=== PATIENT | male | born 1970 | race African-American/Black ===

== ENCOUNTER 2017-01-14 15:43 | Inpatient (IN) | payer OTHER ==
--- NOTE | ~2017-01-14 | HP ---
Unit #: [id number] #: [id number] Patient: TIMOTHY NAZARIO [id number] [place] [address] [id number] MR#: [id number] NAME: TIMOTHY NAZARIO ROOM: P263 Age: 46 Sex: M Admission Date: 01/14/2017 : 1970 Attending Physician: Pavan Yusuf M.D. Admitting Physician: Pavan Yusuf M.D. Primary Care Physician: Primary Care Physician No HISTORY AND PHYSICAL HISTORY OF PRESENT ILLNESS Timothy is a 46 year old admitted to [facility] reporting depression and verbalizing wanting to hurt himself. He has had other admissions to this facility. PAST MEDICAL HISTORY 1. History of osteomyelitis. a. Amputation of the front of his left foot approximately 4 to 8 weeks ago. PAST SURGICAL HISTORY 1. As above. 2. 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 ALLERGIES Codeine. SOCIAL HISTORY He does not smoke. Drinks alcohol on occasion. Admits to a history of crack cocaine use. FAMILY HISTORY Medically noncontributory. REVIEW OF SYSTEMS CONSTITUTIONAL: No fever or chills. HEENT: Denies any sore throat, ear pain or runny nose. CARDIOVASCULAR: Denies chest pain, irregular heart rhythm or palpitations. CHEST: Denies shortness of breath or cough. No hemoptysis. GASTROINTESTINAL: Denies nausea, vomiting, diarrhea or chronic constipation. ENDOCRINE: Denies history of increased thirst or urination. No recent significant weight loss or gain. GENITOURINARY: Denies dysuria, frequency, or hematuria. SKIN: Denies any rashes. HEMATOLOGIC: Denies history of increased bleeding or bruising. MUSCULOSKELETAL: Denies any hot, swollen joints. No generalized muscle pain. NEUROLOGIC: Denies problems with vision or speech. No frequent, severe headaches. No numbness, tingling or weakness in any extremities. Denies loss of bladder or bowel control. CURRENT MEDICATIONS Unit #: [id number] #: [id number] Patient: TIMOTHY NAZARIO 1. Celexa 20 mg q.a.m. 2. Risperdal 0.5 mg b.i.d. 3. Multivitamin 1 daily. 4. Milk of Magnesia p.r.n. 5. Maalox p.r.n. 6. Tylenol p.r.n. 7. Neurontin 800 mg q.i.d. 8. Detox protocol. PHYSICAL EXAMINATION GENERAL: Alert, well-nourished, in no apparent distress. VITAL SIGNS: Blood pressure 118/72, heart rate 80, respirations 16, temperature 98.6. WEIGHT: 180. HEIGHT: 6 feet 2 inches. SKIN: Warm and dry without rash. The entire front part of his left foot is missing. The wound is clean. There is no discharge or slough noted. HEENT: Normocephalic. TMs not viewed. Oral and nasal passages clear. Conjunctivae clear. PERRLA. EOMs intact. NECK: Supple without lymphadenopathy or thyromegaly. HEART: Regular rate and rhythm without murmur. LUNGS: Clear. ABDOMEN: Soft, nontender. : Not done. EXTREMITIES: Moves all without focal deficit. Right lower extremity is absent above the knee. NEUROLOGICAL: Grossly within normal limits. Cranial Nerves: II: Visual barrios are intact. III, IV AND : Extraocular movements are intact. Pupils are equal, round and reactive to light. V: Facial sensation is grossly normal. VII: Facial movements and expression are normal. VIII: Auditory acuity grossly intact. IX, X: Uvula is midline. Phonation is normal. XI: Patient shrugs shoulders and turns head normally. XII: Tongue protrudes in the midline. Sensory and Motor Function: Sensory and motor sensation is grossly normal. Motor: moves all extremities well. Coordination: Patient gets around in a wheelchair. Gait not observed. Deep Tendon Reflexes: Intact. IMPRESSION 1. Psychiatric admission. 2. Recent amputation of the front part of his left foot, approximately 4 to 8 weeks ago. Wound is healing by secondary intention. RECOMMENDATIONS PSYCHIATRIC: Per psychiatrist. MEDICAL: 1. See no contraindication to participate in facility's activities. 2. Keep the wound clean with soap and water. Apply Medihoney and dressing secured with either Ken wrap or self-adherent bandage q. 4 days. MEDICAL PROGNOSIS Good. MEDICAL CONDITION Stable. Unit #: [id number] #: [id number] Patient: TIMOTHY NAZARIO Dictated by... Angel Luis AugustineC. for Daren Schwab/mayank TD: 01/15/2017 18:03 JOB #: [id number] HISTORY AND PHYSICAL Page 1 of 1 X Michelle Mata X HISTORY AND PHYSICAL
--- NOTE | ~2017-01-14 | PN ---
Unit #: [id number] #: [id number] Patient: TIMOTHY NAZARIO [id number] [facility] [address] [place] [address] [id number] I MR#: [id number] NAME: TIMOTHY NAZARIO. ROOM: P263 Age: 46 Sex: M Admission Date: 01/14/2017 : 1970 Attending Physician: Pavan Yusuf M.D. Admitting Physician: Pavan Yusuf M.D. Primary Care Physician: Primary Care Physician Nani HOBSON NOTES DATE 01/17/2017 DISCUSSION Mr. Nazario is a 46-year-old white male who was seen today and chart was reviewed and case was discussed with the staff. He has been anxious, withdrawn and rather seclusive to himself. Meanwhile, he has been cooperative with treatment recommendations and has been taking medications and tolerating them fairly well with no reported side effects. MENTAL STATUS EXAMINATION Middle-aged white male who was casually dressed with fair personal hygiene and appears to be in no acute distress or discomfort. He was awake and alert on interaction with intact orientation. His mood was anxious with congruent affect. He denies any suicidal or homicidal ideations. His insight and judgement remains slightly impaired. TREATMENT PLAN 1. Will continue on his current treatment protocol. Will monitor his response to the medications and make further adjustments as needed. 2. Will continue to follow up. Dictated by... Pavan Yusuf M.D. IAA/mayank TD: 01/17/2017 20:09 JOB #: [id number] Unit #: [id number] #: [id number] Patient: TIMOTHY NAZARIO [facility] PROGRESS NOTES Page 1 of 1 X Pavan Yusuf MD PROGRESS NOTE
--- NOTE | ~2017-01-14 | PN ---
Unit #: [id number] #: [id number] Patient: TIMOTHY ALMONTE [id number] [facility] [address] [place] [address] [id number] I MR#: [id number] NAME: TIMOTHY ALMONTE. ROOM: P263 Age: 46 Sex: M Admission Date: 01/14/2017 : 1970 Attending Physician: Pavan Yusuf M.D. Admitting Physician: Pavan Yusuf M.D. Primary Care Physician: Primary Care Physician Nani HOBSON NOTES DATE OF SERVICE 01/22/2017 DISCUSSION Mr. Almotne is a 46-year-old male who was seen today. Chart was reviewed and case was discussed with the staff. He has been anxious, withdrawn though has not shown any agitation or irritability and has been cooperative with the treatment recommendations and has been taking the medications and tolerating them fairly well with no reported side effects. MENTAL STATUS EXAMINATION Middle-aged male who is casually dressed with fair personal hygiene, appears to be in no acute distress or discomfort. The patient was awake and alert on interaction with intact orientation. His mood is anxious with congruent affect. His speech is slow and goal-directed. He denies any suicidal or homicidal ideations and also denies any auditory or visual hallucinations. His insight and judgment remain slightly impaired. TREATMENT PLAN 1. We will continue him on his current medications and treatment protocol. We will monitor his response to the medications and make further adjustments as needed. 2. We will continue to follow up. Dictated by... Daren Lemons/gunner TD: 01/22/2017 14:40 JOB #: [id number] Unit #: [id number] #: [id number] Patient: TIMOTHY ALMONTE [facility] PROGRESS NOTES Page 1 of 1 X Pavan Yusuf MD PROGRESS NOTE
--- NOTE | ~2017-01-14 | PN ---
Unit #: [id number] #: [id number] Patient: TIMOTHY ALMONTE [id number] [facility] [address] [place] [address] [id number] I MR#: [id number] NAME: TIMOTHY ALMONTE. ROOM: P263 Age: 46 Sex: M Admission Date: 01/14/2017 : 1970 Attending Physician: Pavan Yusuf M.D. Admitting Physician: Pavan Yusuf M.D. Primary Care Physician: Primary Care Physician Nani HOBSON NOTES DATE 01/21/2017 DISCUSSION Mr. Almonte is a 46-year-old, male with mood disorder who was seen today and chart was reviewed and case was discussed with the staff. He has been anxious, withdrawn, depressed and seclusive to himself though has been polite, pleasant and cooperative with treatment recommendations. He has been taking medication and tolerating them fairly well with no reported side effects. MENTAL STATUS EXAM Middle-aged male who was casually dressed with fair personal hygiene, appears to be in no acute distress or discomfort. He was awake and alert on interaction with intact orientation. His mood was anxious with congruent affect. He denies any suicidal or homicidal ideation. His insight and judgement remains slightly impaired. TREATMENT PLAN 1. We will continue him on his current medications and treatment protocol. We will monitor his response to the medication and make further adjustments as needed. 2. We will continue to follow up. Dictated by... Daren Lemons/miranda TD: 01/22/2017 02:58 JOB #: [id number] Unit #: [id number] #: [id number] Patient: TIMOTHY ALMONTE PEAWALI PROGRESS NOTES Page 1 of 1 X Pavan Yusuf MD PROGRESS NOTE
--- NOTE | ~2017-01-14 | PN ---
Unit #: [id number] #: [id number] Patient: TIMOTHY NAZARIO [id number] [facility] [address] [place] [address] [id number] I MR#: [id number] NAME: TIMOTHY NAZARIO ROOM: P263 Age: 46 Sex: M Admission Date: 01/14/2017 : 1970 Attending Physician: Pavan Yusuf M.D. Admitting Physician: Daren Lemons PROGRESS NOTES DATE OF SERVICE: 01/19/2017 SUBJECTIVE Mr. Nazario is a 46-year-old white male who was seen today and chart was reviewed, and case was discussed with the staff. He has been anxious withdrawn and rather seclusive to himself. Meanwhile, he has been taking the medications and tolerating them fairly well with no reported side effects. MENTAL STATUS EXAMINATION Middle-aged white male who was casually dressed with fair personal hygiene, appears to be in no acute distress or discomfort. He was awake and alert on interaction with intact orientation. His mood was anxious with a congruent affect. He denies any suicidal or homicidal ideations. His insight and judgment remain slightly impaired. TREATMENT PLAN 1. We will continue him on his current medications and treatment protocol. We will monitor his response to medications and make further adjustments as needed. 2. We will continue to follow up. Dictated by... Daren Lemons/jyotsnal TD: 01/19/2017 12:32 JOB #: [id number] [facility] PROGRESS NOTES Page 1 of 1 X Pavan Yusuf MD PROGRESS NOTE
--- NOTE | ~2017-01-14 | DS ---
Unit #: [id number] #: [id number] [facility] [id number] [facility] [address] [place] [address] [id number] I MR#: [id number] NAME: TIMOTHY NAZARIO ROOM: P263 Age: 46 Sex: M Admission Date: 01/14/2017 : 1970 Discharge Date: 01/23/2017 Attending Physician: Pavan Yusuf M.D. Primary Care Physician: Primary Care Physician No DISCHARGE SUMMARY IDENTIFYING DATA Mr. Nazario is a 46-year-old, , male, who is a resident of [place], [place], and was self-referred to the hospital. DISCHARGE DIAGNOSES Psychiatric: Major depressive disorder, recurrent, moderate, without psychotic features; impulse control disorder; alcohol dependence, moderate and acute withdrawals; cocaine dependence, moderate. Medical: Status post right glapc-ivs-trnk amputation. Stressors: Mild psychosocial stressors. HISTORY OF PRESENT ILLNESS Please see initial psychiatric evaluation for details. PAST PSYCHIATRIC HISTORY Please see initial psychiatric evaluation for details. PAST MEDICAL HISTORY Please see initial psychiatric evaluation for details. HOSPITAL COURSE The [facility] and was oriented to the hospital environment. Routine p.r.n. medications were initiated, and he was started on Risperdal and Celexa as an antidepressant and mood stabilizer and was closely monitored. He was taking the medications regularly and was tolerating them fairly well and was able to show a decent and therapeutic response with improvement in depression and anxiety and was willing to continue treatment on an outpatient basis and as such, it was decided that he will be discharged home and will continue treatment on an outpatient basis. DISCHARGE MEDICATIONS Celexa 20 mg a day and Risperdal 0.5 mg b.i.d. DISCHARGE CONDITION Stable. PROGNOSIS Fair. Dictated by... Pavan Yusuf M.D. Unit #: [id number] #: [id number] Patient: TIMOTHY NAZARIO IAA/modl TD: 01/23/2017 23:12 JOB #: [id number] DISCHARGE SUMMARY Page 1 of 1 X Pavan Yusuf MD DISCHARGE SUMMARY
--- NOTE | ~2017-01-14 | PN ---
Unit #: [id number] #: [id number] Patient: TIMOTHY ALMONTE [id number] [facility] [address] [place] [address] [id number] I MR#: [id number] NAME: TIMOTHY ALMONTE. ROOM: P263 Age: 46 Sex: M Admission Date: 01/14/2017 : 1970 Attending Physician: Pavan Yusuf M.D. Admitting Physician: Pavan Yusuf M.D. Primary Care Physician: Primary Care Physician Nani HOBSON NOTES DATE January 15, 2017 DISCUSSION Mr. Almonte is a 46-year-old white male, who was seen today and chart was reviewed and the case was discussed with the staff. He has been anxious, withdrawn, but has not shown any agitation or irritability and has been cooperative with the treatment recommendations, and he has been taking the medications and tolerating them fairly well with no reported side effects. MENTAL STATUS EXAMINATION Middle-aged white male, who was casually dressed with fair personal hygiene and appears to be in no acute distress or discomfort. He was awake and alert on interaction with intact orientation. His mood is anxious with a congruent affect. He denies any suicidal or homicidal ideations. His insight and judgment remain slightly impaired. TREATMENT PLAN 1. We will continue him on his current medications and treatment protocol, and will monitor his response to the medications, and make further adjustments as needed. 2. We will continue to followup. Dictated by... Daren Lemons/kristan TD: 01/15/2017 09:30 JOB #: [id number] Unit #: [id number] #: [id number] Patient: TIMOTHY ALMONTE [facility] PROGRESS NOTES Page 1 of 1 X Pavan Yusuf MD PROGRESS NOTE
--- NOTE | ~2017-01-14 | PN ---
Unit #: [id number] #: [id number] Patient: TIMOTHY ALMONTE [id number] [facility] [address] [place] [address] [id number] I MR#: [id number] NAME: TIMOTHY ALMONTE. ROOM: P263 Age: 46 Sex: M Admission Date: 01/14/2017 : 1970 Attending Physician: Pavan Yusuf M.D. Admitting Physician: Pavan Yusuf M.D. Primary Care Physician: Primary Care Physician Nani HOBSON NOTES DATE January 18, 2017 DISCUSSION Mr. Almonte is a 46-year-old white male, who was seen today and chart was reviewed and the case was discussed with the staff. He has been anxious, withdrawn, depressed, and rather seclusive to himself. He has been cooperative with the treatment recommendations and he has been taking the medications and tolerating them fairly well. MENTAL STATUS EXAMINATION Middle-aged white male, who was casually dressed with fair personal hygiene and appears to be in no acute distress or discomfort. He was awake and alert on interaction with intact orientation. His mood is anxious and depressed with a congruent affect. He denies any suicidal or homicidal ideations. His insight and judgment remain slightly impaired. TREATMENT PLAN We will continue him on his current medications and treatment protocol, and will monitor his response to the medications, and make further adjustments as needed. Dictated by... Daren Lemons/kristan TD: 01/20/2017 04:49 JOB #: [id number] Unit #: [id number] #: [id number] Patient: TIMOTHY ALMONTE [facility] PROGRESS NOTES Page 1 of 1 X Pavan Yusuf MD PROGRESS NOTE
--- NOTE | ~2017-01-14 | PA ---
Unit #: [id number] #: [id number] Patient: TIMOTHY NAZARIO [id number] [facility] [address] [place] [address] [id number] I MR#: [id number] NAME: TIMOTHY NAZARIO ROOM: P263 Age: 46 Sex: M Admission Date: 01/14/2017 : 1970 Date of Assessment: 01/14/2017 Attending Physician: Pavan Yusuf M.D. Admitting Physician: Pavan Yusuf M.D. Primary Care Physician: Primary Care Physician No PSYCHIATRIC ASSESSMENT DATE OF SERVICE 01/14/2017. IDENTIFYING DATA Mr. Nazario is a 46-year-old male, who is a resident of [place], [place] and was self-referred to the hospital. CHIEF COMPLAINT "I have been bad and unsanitary." HISTORY OF PRESENT ILLNESS Mr. Nazario is a 46-year-old male, who was self-referred to the hospital. Upon presentation, he reports that he has been in a lot of stress with his daily living due to staying a month in a rehab facility the past month and that he has been having suicidal and homicidal ideations with intent and plan to hurt the staff and the patients at [facility]. He is on disability and has been an amputee of his lower extremity and reports that he had osteomyelitis and MRSA and has a partially amputated foot and one leg is amputated below the knee and he has been wheelchair and has been in rehab and has been feeling hopeless and helpless and does report that rehab facility was bad and unsanitary and therefore, he has been having thoughts of going and killing staff at the rehab facility. He was seen to be danger to self and reports suicidal ideations and homicidal ideation and intent and plan to hurt the staff at rehab facility, stating "I know when I face stress, I divert to drugs and I know I should not be putting myself in that situation," and reports that he has multiple stressors and is currently homeless and therefore, recommendation for inpatient level of care for safety and stabilization was made and the patient was transferred to us. SUBSTANCE ABUSE HISTORY The patient reports history of alcohol, cannabis, cocaine, and acid abuse, and currently reports cocaine to be his drug of choice. He reports that he has been using 60 dollar worth of cocaine a day and has been using half a pint of liquor 3 to 4 days a week. PAST PSYCHIATRIC HISTORY The patient has a history of inpatient psychiatric hospitalization at [facility] and currently he is not active in treatment program, and is not seeing a psychiatrist and not taking any psychotropic medications. PAST MEDICAL HISTORY The patient's medical history significant for osteomyelitis, status post Unit #: [id number] #: [id number] Patient: TIMOTHY NAZARIO right botxx-ifd-nthq amputation. ALLERGIES Codeine. PERSONAL AND SOCIAL HISTORY A 46-year-old male, who reports that he is single, unemployed, and essentially homeless and has poor social support system. MENTAL STATUS EXAMINATION Middle-aged male, who was casually dressed with fair personal hygiene, appears to be in no acute distress or discomfort. He was awake and alert on interaction with intact orientation to time, place, and person. His mood was anxious and depressed with a congruent affect. His speech was slow and restricted in content. His thought processes were disorganized with some looseness of associations and suicidal ideations and homicidal ideations. His insight and judgment remain significantly impaired. DIAGNOSTIC IMPRESSION Psychiatric: Major depressive disorder, recurrent, moderate, without psychotic features; impulse control disorder; alcohol dependence, moderate and acute withdrawals; cocaine dependence, moderate. Medical: Status post right tfzbv-kvg-taon amputation. Stressors: Moderate psychosocial stressors. TREATMENT PLAN 1. The patient has presented with history of substance abuse and mood disorder and has been decompensating and will need inpatient hospitalization for safety and stabilization. We will start him back on his home medications. We will adjust the medications and monitor response. 2. Supportive therapy was provided to the patient. 3. Safe, structured, and nourishing environment will be reported. ESTIMATED LENGTH OF STAY 5 to 7 days. ABILITY TO HELP SELF Limited. WILLINGNESS TO HELP SELF The patient appears to be willing to help self. STRENGTHS 1. Communicative. 2. Cooperative. PROBLEMS 1. Chronic dysphoric symptoms. 2. Poor social support system. DISCHARGE CRITERIA This will be contingent upon the patient's ability to show resolution of his depression and anxiety and his ability to stay safe to himself, particularly after discharge from the hospital. Dictated by... Unit #: [id number] #: [id number] Patient: MANSIDaren Mohan/margareth TD: 01/15/2017 07:37 JOB #: [id number] PSYCHIATRIC ASSESSMENT Page 1 of 1 X Pavan Yusuf MD X PSYCHIATRIC ASSESSMENT
--- NOTE | ~2017-01-14 | PN ---
Unit #: [id number] #: [id number] Patient: TIMOTHY ALMONTE [id number] [facility] [address] [place] [address] [id number] I MR#: [id number] NAME: TIMOTHY ALMONTE. ROOM: P263 Age: 46 Sex: M Admission Date: 01/14/2017 : 1970 Attending Physician: Pavan Yusuf M.D. Admitting Physician: Pavan Yusuf M.D. Primary Care Physician: Primary Care Physician Nani HOBSON NOTES DATE January 20, 2017 DISCUSSION Mr. Almonte is a 46-year-old male, who was seen today and chart was reviewed and the case was discussed with the staff. He has been anxious, withdrawn, depressed, and rather seclusive to himself. Meanwhile, he has been cooperative with the treatment recommendations, and he has been taking the medications and tolerating them fairly well with no reported side effects. MENTAL STATUS EXAMINATION Middle-aged male, who was casually dressed with fair personal hygiene and appears to be in no acute distress or discomfort. He was awake and alert on interaction with intact orientation. His mood is anxious and depressed with a congruent affect. His speech is slow and goal-directed. He reports having any suicidal ideations but denies any homicidal ideations, and also denies any auditory or visual hallucinations. His insight and judgment remain slightly impaired. TREATMENT PLAN 1. We will continue him on his current medications and treatment protocol, and will monitor his response to the medications, and make further adjustments as needed. 2. We will continue to followup. Dictated by... Daren Lemons/kristan TD: 01/21/2017 06:39 JOB #: [id number] Unit #: [id number] #: [id number] Patient: TIMOTHY ALMONTE [facility] HOBSON NOTES Page 1 of 1 X Pavan Yusuf MD PROGRESS NOTE
--- NOTE | ~2017-01-14 | CO ---
Unit #: [id number] #: [id number] Patient: TIMOTHY NAZARIO [id number] [place] [address] [id number] I MR#: [id number] NAME: TIMOTHY NAZARIO ROOM: [facility] Age: 46 Sex: M Admission Date: 01/14/2017 : 1970 Attending Physician: Pavan Yusuf M.D. Primary Care Physician: Primary Care Physician No Consultation Date: 01/15/2017 CONSULTATION REPORT Timothy is a 46-year-old who had the front part of his foot amputated 4 to 8 weeks prior to this admission. This area was addressed and examined, and detailed in his admission H and P. Please see H and P dated 01/15/2017. Dictated by... Michelle Mata P.A.-C. for Daren Schwab/margareth TD: 01/16/2017 14:28 JOB #: [id number] CONSULTATION REPORT Page 1 of 1 X Michelle Mata CONSULTATION REPORT
--- NOTE | ~2017-01-14 | PN ---
Unit #: [id number] #: [id number] Patient: TIMOTHY ALMONTE [id number] [facility] [address] [place] [address] [id number] MR#: [id number] NAME: TIMOTHY ALMONTE. ROOM: P263 Age: 46 Sex: M Admission Date: 01/14/2017 : 1970 Attending Physician: Pavan Yusuf M.D. Admitting Physician: Pavan Yusuf M.D. Primary Care Physician: Primary Care Physician Nani SANZ PROGRESS NOTES DATE OF SERVICE 01/16/2017 DISCUSSION Mr. Almonte is a 46-year-old white male who was seen today. Chart was reviewed and case was discussed with the staff. He has been anxious and withdrawn but has not shown any agitation or irritability and has been cooperative with the treatment recommendations as he has been taking the medications and tolerating them fairly well with no reported side effects. MENTAL STATUS EXAMINATION Middle-aged white male who is casually dressed with fair personal hygiene, appears to be in no acute distress or discomfort. The patient was awake and alert on interaction with intact orientation. His mood is anxious and depressed with congruent affect. His speech is slow and restricted in content. He reports having suicidal ideation but denies any homicidal ideations. His insight and judgment remain slightly impaired. TREATMENT PLAN 1. We will continue him on his current medications and treatment protocol. We will monitor his response to the medications and make further adjustments as needed. 2. We will continue to follow up. Dictated by... Daren Lemons/kuldipg TD: 01/16/2017 12:42 JOB #: [id number] Unit #: [id number] #: [id number] Patient: TIMOTHY ALMONTE PEAWALI PROGRESS NOTES Page 1 of 1 X Pavan Yusuf MD PROGRESS NOTE
[2017-01-15 09:43] LABS: BASOPHIL# 0.1 X10e3 (0-0.3); BASOPHIL% 0.5 % (0-2.5); EOSINOPHIL# 0.2 X10e3 (0-0.7); EOSINOPHIL% 2.1 % (0.0-7.0); HEMATOCRIT 41.6 % (38.0-50.0); HEMOGLOBIN 13.7 gm/dL (13.0-16.0); LYMPHOCYTE% 20.5 % (17.0-45.0); MEAN CELL VOLUME 83.7 FL (83-96); MEAN CORPUSCULAR HEMOGLOBIN 27.6 PG (28-34); MEAN CORPUSCULAR HGB CONC 32.9 g/dL (30-36); MEAN PLATELET VOLUME 8.5 FL (6.5-11.5); MONOCYTE# 0.9 X10e3 (0-1.0); MONOCYTE% 9.5 % (3.0-12.0); NEUTROPHIL# 6.7 X10e3 (1.5-7.1); NEUTROPHIL% 67.4 % (40-75); PLATELET COUNT 260 X10e3 (140-420); RED BLOOD COUNT 4.97 X10e (3.90-5.60); RED CELL DISTRIBUTION WIDTH 13.8 % (11.0-15.5); WHITE BLOOD COUNT 9.9 X10e3 (4.0-10.5)
[2017-01-15 09:53] LABS: BILIRUBIN,TOTAL 0.7 mg/dL (0.2-2.0); CALCIUM SERUM 9.6 mg/dL (8.4-10.2); GLOM FILT RATE Estimated 103.4 mL/min (>60); POTASSIUM 3.9 mmol/L (3.5-5.1); PROTEIN TOTAL SERUM 7.7 g/dL (6.0-8.3)
[2017-01-15 09:55] LABS: DIFF IND NO
[2017-01-22 09:55] LABS: URINE APPEARANCE CLEAR; URINE BILIRUBIN NEG (NEG); URINE BLOOD NEG (NEG); URINE COLOR DK YELLOW; URINE GLUCOSE NEG (NEG); URINE KETONE NEG (NEG); URINE LEUKOCYTE ESTERASE NEG (NEG); URINE NITRATE NEG (NEG); URINE PH 5.5 (5-8); URINE PROTEIN NEG (NEG); URINE SPECIFIC GRAVITY 1.025 (1.003-1.035); URINE UROBILINOGEN 0.2 MG/DL (NEG)
[2017-01-22 11:37] LABS: AMPHETAMINE NEG (NEG); BARBITURATES NEG (NEG); BENZODIAZEPINES NEG (NEG); COCAINE NEG (NEG); MARIJUANA NEG (NEG); OPIATES NEG (NEG); TRICYCLIC ANTIDEPRESSANTS NEG (NEG); U METHADONE NEG (NEG)
== END 2017-01-23 14:30 | disposition home or self-care (01) | DRG 885 ==
LOC: P2L 18:27
PROVIDERS: Psychiatry & Neurology Psychiatry
DX: F33.1 Major depressive disorder, recurrent, moderate (principal); F14.20 Cocaine dependence, uncomplicated; F10.239 Alcohol dependence with withdrawal, unspecified; F63.9 Impulse disorder, unspecified; Z89.511 Acquired absence of right leg below knee
CPT/HCPCS: 80053; 80307; 81003; 85025; 86592